=== PATIENT | male | born 1955 | race African-American/Black ===

== ENCOUNTER 2017-02-15 23:14 | Emergency (ER) | payer OTHER ==
[2017-02-15 23:01] LABS: BASOPHIL# 0.1 X10e3 (0-0.3); BASOPHIL% 2.4 % (0-2.5); EOSINOPHIL# 0.1 X10e3 (0-0.7); HEMOGLOBIN 16.6 gm/dL (13.0-16.0); LYMPHOCYTE# 1.8 X10e3 (1.0-3.5); LYMPHOCYTE% 38.9 % (17.0-45.0); MEAN CELL VOLUME 97.8 FL (83-96); MEAN CORPUSCULAR HEMOGLOBIN 31.9 PG (28-34); MEAN CORPUSCULAR HGB CONC 32.6 g/dL (30-36); MEAN PLATELET VOLUME 8.5 FL (6.5-11.5); MONOCYTE% 21.5 % (3.0-12.0); NEUTROPHIL# 1.6 X10e3 (1.5-7.1); NEUTROPHIL% 34.2 % (40-75); PLATELET COUNT 277 X10e3 (140-420); RED BLOOD COUNT 5.21 X10e (3.90-5.60); RED CELL DISTRIBUTION WIDTH 13.7 % (11.0-15.5); WHITE BLOOD COUNT 4.7 X10e3 (4.0-10.5)
[2017-02-15 23:04] LABS: ALBUMIN SERUM 4.6 g/dL (3.5-5.0); BILIRUBIN,TOTAL 0.5 mg/dL (0.2-2.0); CALCIUM SERUM 9.6 mg/dL (8.4-10.2); DIFF IND YES; GLOM FILT RATE Estimated 92.4 mL/min (>60); POTASSIUM 3.7 mmol/L (3.5-5.1)
[2017-02-15 23:05] LABS: BILIRUBIN, DIRECT 0.1 mg/dL (0.0-0.2); BILIRUBIN,INDIRECT 0.4 mg/dL (0.0-0.9)
[~2017-02-15 23:14] MED LIST: MED FOR ACID REFLUX; NEXIUM PO
[2017-02-15 23:25] LABS: PLATELET ESTIMATE NORMAL (NORMAL)
[2017-02-15 23:26] LABS: ANISOCYTOSIS SL; POIKILOCYTOSIS SL
== END 2017-02-16 03:20 | disposition home or self-care (01) ==
LOC: CED 23:14
PROVIDERS: Emergency Medicine
DX: T78.3XXA Angioneurotic edema, initial encounter (principal); I10 Essential (primary) hypertension; K21.9 Gastro-esophageal reflux disease without esophagitis; F17.200 Nicotine dependence, unspecified, uncomplicated
CPT/HCPCS: 36415; 80048; 80076; 85025; 96374; 96375; 99284; J1200; J2930